=== PATIENT | female | born 1940 | race Caucasian/White ===

== ENCOUNTER → 2016-10-16 | Outpatient (CLI) | payer BC ==
[~2016-10-16] MED LIST: ASPEC81 PO; CARB200T PO; CARB200T2 PO; CHOL400C10 PO; CYAN100048 PO; EVS60 PO; LOSA50TA6 PO; ONDA4TAB46 PO; ONDA4TAB7 SL; RALO60TA30 PO; ZNT/150 PO
[2016-10-16 10:15] LABS: BASO % 0.4 %; BASO ABS # 0.02 K/uL (0-0.2); COMPLETE YES; EOS % 7.7 %; HEMATOCRIT 39.1 % (37-47); IG% 0.2 %; LYMPH % 31.4 %; MEAN CORPUSCULAR HEMOGLOBIN 31.5 pg (25-34); MEAN CORPUSCULAR HGB CONC 34.3 g/dl (32-36); MEAN PLATELET VOLUME 9.1 fL (7.4-10.4); MONO % 8.7 %; NEUT % 51.6 %; PLATELET COUNT 245 K/uL (130-400); RED BLOOD COUNT 4.25 M/uL (4.2-5.4); WHITE BLOOD COUNT 5.42 K/uL (4.8-10.8)
[2016-10-16 10:56] LABS: ALT/SGPT 23 U/L (12-78); AST/SGOT 14 U/L (15-37); BLOOD UREA NITROGEN 16 mg/dl (7-18); BUN/CREATININE RATIO 16.5 (10-20); CALCIUM 9.1 mg/dl (8.5-10.1); CARBON DIOXIDE 29 mmol/L (21-32); CHLORIDE 107 mmol/L (98-107); CREATININE 0.96 mg/dl (0.60-1.20); GLUCOSE 96 mg/dl (70-99); POTASSIUM 4.1 mmol/L (3.5-5.1); SODIUM 142 mmol/L (136-145)
== END | disposition home or self-care (01) ==
LOC: C.LAB 09:36
DX: I10 Essential (primary) hypertension (principal); M79.2 Neuralgia and neuritis, unspecified

== ENCOUNTER → 2016-11-08 | Outpatient (CLI) | payer BC ==
[~2016-11-08] MED LIST changes: +RALO60TA12 PO; -RALO60TA30 PO
[2016-11-08 18:00] LABS: FERRITIN 76.9 ng/ml (8.0-388.0); MAGNESIUM 2.2 mg/dl (1.8-2.4); THYROID STIMULATING HORMONE 1.63 uIu/ml (0.300-4.500)
== END ==
LOC: C.LAB 16:31
DX: M79.1 Myalgia (principal)

== ENCOUNTER → 2017-02-17 | Outpatient (CLI) | payer BC ==
[~2017-02-17] MED LIST changes: -RALO60TA12 PO; +RALO60TA30 PO
[2017-02-17 18:02] LABS: BASO % 0.3 %; BASO ABS # 0.02 K/uL (0-0.2); COMPLETE YES; EOS % 5.5 %; HEMATOCRIT 39.4 % (37-47); IG% 0.3 %; LYMPH ABS # 1.44 K/uL (1.2-3.4); MEAN CELL VOLUME 92.7 fL (80-100); MEAN CORPUSCULAR HEMOGLOBIN 31.3 pg (25-34); MEAN CORPUSCULAR HGB CONC 33.8 g/dl (32-36); MEAN PLATELET VOLUME 8.7 fL (7.4-10.4); NEUT % 64.9 %; PLATELET COUNT 188 K/uL (130-400); RED BLOOD COUNT 4.25 M/uL (4.2-5.4); WHITE BLOOD COUNT 7.21 K/uL (4.8-10.8)
--- NOTE | 2017-02-17 18:09 | DIAGNOSTIC IMAGING REPORT ---
CHEST 2 VIEWS ROUTINE CLINICAL HISTORY: FEVER, COUGH dyspnea COMPARISON STUDY: 03/08/2015 FINDINGS: The bones soft tissues and hemidiaphragms are normal. The cardiomediastinal silhouette is normal. The lungs are clear. The pulmonary vasculature is normal. IMPRESSION: Negative chest. Electronically signed by: Gilberto Monroe M.D. 02/17/2017 6:08 PM Dictated Date/Time: 02/17/2017 6:07 PM
== END | disposition home or self-care (01) ==
LOC: C.RAD 17:40
DX: R05 Cough (principal)

== ENCOUNTER 2017-04-09 20:01 | Emergency (ER) | payer BC ==
[~2017-04-09] VITALS: Ht 160 cm; Wt 65.8 kg
[~2017-04-09 20:01] MED LIST changes: -CARB200T PO; -CHOL400C10 PO; -CYAN100048 PO; -ONDA4TAB46 PO; -RALO60TA30 PO
[2017-04-09 20:10] VITALS: TEMP 36.7; Ht 160 cm; Wt 65.8 kg
[2017-04-09] MEDS ORDERED: LIDOCAINE/EPINEPHRINE 1% 20 ML VIAL INFIL ONE (20:45)
[2017-04-09] MEDS ORDERED: CARB200T PO (20:54)
[2017-04-09] MEDS ORDERED: ONDA4TAB46 PO (20:54)
[2017-04-09] MEDS ORDERED: CYAN100048 PO (20:54)
[2017-04-09] MEDS ORDERED: CHOL400C10 PO (20:54)
[2017-04-09] MEDS ORDERED: RALO60TA12 PO (20:54)
--- NOTE | 2017-04-09 21:09 | DIAGNOSTIC IMAGING REPORT ---
HEAD CT NONCONTRAST CT DOSE: 537.48 mGy.cm HISTORY: head injury TECHNIQUE: Multiaxial CT images of the head were performed without the use of intravenous contrast. Automated exposure control was utilized for this study. Comparison: None. Findings: Trace fluid within the left sphenoid sinus. Posterior scalp laceration. The calvarium and skull base are intact. The ventricles and sulci are within normal limits. There is no mass, hematoma, midline shift, or acute infarct. Impression: No acute intracranial abnormality. Posterior scalp laceration. Electronically signed by: Saul Chery M.D. 04/09/2017 9:07 PM Dictated Date/Time: 04/09/2017 9:01 PM
--- NOTE | 2017-04-09 21:48 | EMERGENCY ROOM VISIT NOTE ---
History First contact with patient: 20:18 Chief Complaint: HEAD INJURY (MINOR) Stated Complaint: CUT ON HEAD/INJURY History of Present Illness The patient is a 76 year old female who presents to the Emergency Room with complaints of a head injury which occurred just prior to arrival. The patient states that she was ice skating with a moravian group and fell on the ice, striking the back of her head on the ice. There was no loss of consciousness. The patient reports a mild headache which she rates a 5/10. She denies any nausea/vomiting, dizziness, confusion, blurred vision or slurred speech. The patient does not take blood thinners. She reports she did sustain a laceration to the back of the head. Her tetanus shot is up-to-date. Review of Systems A complete 10 point review of systems was reviewed with the patient with pertinent positives and negatives as per history of present illness. All else were negative. Past Medical/Surgical History Medical Problems: (1) Bronchitis (2) HTN (hypertension) (3) Pneumonia Surgical Problems: (1) H/O hernia repair (2) H/O: hysterectomy Family History Diabetes mellitus Heart disease Hypertension Social History Smoking Status: Never Smoker Alcohol Use: none Marital Status: Housing Status: lives with significant other Occupation Status: retired Current/Historical Medications Scheduled Carbamazepine (Epitol), 100 MG PO HS Carbamazepine (Tegretol), 200 MG PO QAM Cholecalciferol (Vitamin D 400), 400 UNITS PO DAILY Cyanocobalamin (Vitamin B-12), 1,000 MCG PO DAILY Losartan Potassium (Cozaar), 50 MG PO DAILY Raloxifene Hcl (Evista), 60 MG PO WK Ranitidine Hcl (Zantac), 300 MG PO HS Scheduled PRN Ondansetron Hcl (Zofran), 4 MG PO Q6H PRN for Nausea Allergies Coded Allergies: Amoxicillin (Verified Allergy, Unknown, unknown, 03/08/15) Codeine (Verified Adverse Reaction, Intermediate, DIZZINESS AND FAINTING, 03/08/15) Physical Exam Vital Signs Date Time Temp Pulse Resp B/P (MAP) Pulse Ox O2 Delivery O2 Flow Rate FiO2 04/09/17 22:12 100 20 190/107 97 04/09/17 20:10 36.7 107 16 186/95 97 Room Air Physical Exam VITALS: Vitals are noted on the nurse's note and reviewed by myself. Vital signs stable. GENERAL: This is a 76-year-old female, in no acute distress, nondiaphoretic, well-developed well-nourished. SKIN: There is a 6 cm laceration to the posterior aspect of the scalp with no active bleeding. EARS: External auditory canals clear, tympanic membranes pearly carrasco without erythema or effusion bilaterally. No hemotympanum. EYES: Pupils equal round and reactive to light and accommodation. Conjunctivae without injection, sclerae without icterus. Extraocular movements intact. MOUTH: No loose or chipped teeth. NECK: Cervical spine is nontender. HEART: Regular rate and rhythm without murmurs gallops or rubs. LUNGS: Clear to auscultation bilaterally without wheezes, rales or rhonchi. NEURO: Patient was alert and oriented to person place and time. No focal neurological deficits. Medical Decision & Procedures ER Provider Diagnostic Interpretation: HEAD CT NONCONTRAST Findings: Trace fluid within the left sphenoid sinus. Posterior scalp laceration. The calvarium and skull base are intact. The ventricles and sulci are within normal limits. There is no mass, hematoma, midline shift, or acute infarct. Impression: No acute intracranial abnormality. Posterior scalp laceration. Procedure Verbal consent was obtained to perform the procedure. Using sterile technique the wound was cleaned with Betadine. The area was sterilely draped. 6 ml of 1 % buffered lidocaine with epinephrine was used to anesthetize the patient's scalp. Once the patient was numb, the wound was copiously irrigated under pressure with sterile saline. The wound was explored and there were no deep structures present. The laceration was repaired using 11 park with the wound edges being well approximated. The patient tolerated the procedure well. The bleeding stopped. The area was cleaned with sterile saline. Medical Decision Differential diagnosis includes skull fracture, intracranial bleed, concussion, among others. The patient is a 76-year-old female who presents today for evaluation of a head injury. The patient underwent CT of the head, which was read by radiology with no acute findings. Scalp laceration repair was performed as noted in the procedure section. Conservative measures and wound care instructions were discussed with the patient. She verbalized her understanding and was discharged home in good condition. The patient was independently evaluated by Dr. Turner, ED attending physician, who agreed with my assessment and treatment plan. Medication reconciliation: I attest that I have personally reviewed the patient 's current medication list. Blood pressure screening: Patient was found to have an elevated blood pressure and was referred to their primary care provider for recheck and further treatment. Patient does note a history of hypertension and states that she typically takes losartan at bedtime and did not take that yet. Impression Primary Impression: Closed head injury Additional Impression: Scalp laceration Departure Information Dispostion Home / Self-Care Condition GOOD Referrals Omari Islas Jr,D.O. (PCP) Patient Instructions My [facility] Additional Instructions You have received 11 park on your scalp. These park are NOT dissolvable and WILL need to be removed by a health care provider in 10 days. You can return to the Emergency Department or contact your Primary Care Provider to have these park removed. Proper wound care is essential for adequate wound healing and infection prevention. You can shower and clean the wound with soap and water. Do scour over the wound, pat dry with a towel. Do not submerse the wound until the park have been removed. You can use an antibiotic ointment with a dressing over the wound for the next 3-4 days. After this time you may leave the wound dry and open to the air. If crust develops over the wound you can use a Q-tip to apply a 1:1 peroxide:water solution to clean the wound. Look for signs of infection of the wound including: increased pain, swelling, foul discharge, streaking, or increased temperature. If any of these are noticed you should return to the Emergency Department for further assessment and treatment. As with any laceration you may have received nerve damage to the surrounding tissues. This damage may or may not be permanent. For pain control, you can use the following acuc-rfr-[id number] medicines (if >12 yo): - Regular strength (325mg/tab) Tylenol (acetaminophen) 2 tabs every 4-6 hours as needed. Do not exceed 12 tablets in a 24 hour period. Avoid taking more than 4 grams (4000 mg) of Tylenol per day. This includes any other sources of acetaminophen you may take on a regular basis. - Regular strength (200 mg/tab) Advil (ibuprofen) 1-2 tabs every 4-6 hours as needed. Do not exceed a dose of 3200 mg per day. Return to the emergency department if your symptoms worsen despite treatment course outlined above. Problem Qualifiers Primary Impression: Closed head injury Encounter type: initial encounter Qualified Codes: S09.90XA - Unspecified injury of head, initial encounter Additional Impression: Scalp laceration Encounter type: initial encounter Qualified Codes: S01.01XA - Laceration without foreign body of scalp, initial encounter
--- NOTE | 2017-04-09 21:57 | EMERGENCY ROOM VISIT NOTE ---
ED Visit Note First contact with patient: 20:18 The patient was seen and examined with Jacinda Chance PA-C. I agree with the history, physical and findings. Please see the note for disposition and details.
[2017-04-09 22:12] VITALS: BP 190/107; PULSE 100; O2SAT 97
== END 2017-04-09 22:13 | disposition home or self-care (01) ==
LOC: C.EDB 20:03 → C.EDD 22:13
DX: S01.01XA Laceration without foreign body of scalp, initial encounter (principal); S09.90XA Unspecified injury of head, initial encounter; W01.0XXA Fall on same level from slipping, tripping and stumbling without subsequent striking against object, initial encounter; Y93.21 Activity, ice skating; I10 Essential (primary) hypertension; Z86.19 Personal history of other infectious and parasitic diseases; Z90.710 Acquired absence of both cervix and uterus; Z98.890 Other specified postprocedural states; Z79.899 Other long term (current) drug therapy; Z88.1 Allergy status to other antibiotic agents; Z88.5 Allergy status to narcotic agent; Z83.3 Family history of diabetes mellitus; Z82.49 Family history of ischemic heart disease and other diseases of the circulatory system

== ENCOUNTER → 2017-05-26 | Outpatient (CLI) | payer BC ==
[~2017-05-26] MED LIST changes: -ASPEC81 PO; +CARB200T PO; +CHOL400C10 PO; +CYAN100048 PO; -EVS60 PO; +ONDA4TAB46 PO; -ONDA4TAB7 SL; +RALO60TA12 PO
[2017-05-26 12:38] LABS: BASO % 0.5 %; BASO ABS # 0.03 K/uL (0-0.2); COMPLETE YES; EOS % 3.5 %; HEMATOCRIT 42.8 % (37-47); IG% 0.2 %; LYMPH % 31.1 %; LYMPH ABS # 1.94 K/uL (1.2-3.4); MEAN CELL VOLUME 92.6 fL (80-100); MEAN CORPUSCULAR HEMOGLOBIN 29.9 pg (25-34); MEAN CORPUSCULAR HGB CONC 32.2 g/dl (32-36); MEAN PLATELET VOLUME 9.4 fL (7.4-10.4); MONO % 7.9 %; NEUT % 56.8 %; PLATELET COUNT 242 K/uL (130-400); RED BLOOD COUNT 4.62 M/uL (4.2-5.4); WHITE BLOOD COUNT 6.23 K/uL (4.8-10.8)
[2017-05-26 13:02] LABS: BLOOD UREA NITROGEN 13 mg/dl (7-18); BUN/CREATININE RATIO 16.6 (10-20); CARBON DIOXIDE 28 mmol/L (21-32); CHLORIDE 108 mmol/L (98-107); CREATININE 0.81 mg/dl (0.60-1.20); GLUCOSE 87 mg/dl (70-99); POTASSIUM 4.1 mmol/L (3.5-5.1); SODIUM 141 mmol/L (136-145)
[2017-05-26 13:09] LABS: CHOLESTEROL 253 mg/dl (0-200); CHOLESTEROL/HDL RATIO 2.5; FERRITIN 91.8 ng/ml (8.0-388.0); HDL CHOLESTEROL 102 mg/dl; LDL CHOLESTEROL CALCULATED 127 mg/dl; TRIGLYCERIDES 119 mg/dl (0-150); VERY LOW DENSITY LIPOPROT CALC 24 mg/dl
== END | disposition home or self-care (01) ==
LOC: C.LAB 10:17
DX: G47.00 Insomnia, unspecified (principal); E55.9 Vitamin D deficiency, unspecified; E78.5 Hyperlipidemia, unspecified; E61.1 Iron deficiency

== ENCOUNTER → 2017-09-17 | Outpatient (CLI) | payer BC ==
[~2017-09-17] MED LIST changes: -RALO60TA12 PO; +RALO60TA30 PO
--- NOTE | 2017-09-18 07:53 | MAMMOGRAPHY REPORT ---
BILATERAL DIGITAL SCREENING MAMMOGRAM TOMOSYNTHESIS WITH CAD: 09/17/2017 CLINICAL HISTORY: Routine screening. Patient has no complaints. TECHNIQUE: Breast tomosynthesis in addition to standard 2D mammography was performed. Current study was also evaluated with a Computer Aided Detection (CAD) system. COMPARISON: Comparison is made to exams dated: 07/30/2016 mammogram, 07/27/2015 mammogram, 04/25/2014 mammogram, 04/22/2013 mammogram, 03/17/2012 mammogram, and 03/12/2011 mammogram - [facility]. BREAST COMPOSITION: There are scattered areas of fibroglandular density in both breasts. FINDINGS: There is a 7 mm focal asymmetry in the upper outer middle one third of the right breast, f or which additional spot compression tomosynthesis views and possible ultrasound are recommended. There are scattered benign round microcalcifications in both breasts. No other suspicious mass, archi tectural distortion or cluster of microcalcifications is seen. IMPRESSION: ACR BI-RADS CATEGORY 0: INCOMPLETE EVALUATION: NEED ADDITIONAL IMAGING EVALUATION The 7 mm focal asymmetry in the right upper outer breast needs additional evaluation. The patient will be called to schedule an appointment. Approximately 10% of breast cancers are not detected with mammography. A negative mammographic report should not delay biopsy if a clinically suggestive mass is present. Gogo Erickson M.D. ay/:09/17/2017 16:28:17 Parking Lot Attendant: Bettina SANCHEZ)([employer]), [facility] letter sent: Addl Imaging 0 BI-RADS Code: ACR BI-RADS Category 0: Incomplete Evaluation: Need Additional Imaging Evaluation
== END | disposition home or self-care (01) ==
LOC: C.MAMM 14:40
PROVIDERS: ATTEND Obstetrics & Gynecology
DX: Z12.31 Encounter for screening mammogram for malignant neoplasm of breast (principal)

== ENCOUNTER → 2017-09-29 | Outpatient (CLI) | payer BC ==
--- NOTE | 2017-09-29 15:09 | MAMMOGRAPHY REPORT ---
UNILATERAL RIGHT DIGITAL DIAGNOSTIC MAMMOGRAM TOMOSYNTHESIS AND TARGETED RIGHT ULTRASOUND: 09/29/2017 CLINICAL HISTORY: 76-year-old woman called back from screening mammography for a 7 mm focal asymmetry in the upper outer middle one third of the right breast. TECHNIQUE: Spot compression 2-D and tomosynthesis CC and MLO views of the right breast were obtained. COMPARISON: Comparison is made to exams dated: 09/17/2017 mammogram, 07/30/2016 mammogram, 07/27/2015 mammogram, 04/25/2014 mammogram, 04/22/2013 mammogram, and 03/12/2011 mammogram - [facility]. BREAST COMPOSITION: There are scattered areas of fibroglandular density in the right breast. FINDINGS: There is partial effacement of the focal asymmetry in the upper outer middle one third of the right breast on the additional supplemental spot compression tomosynthesis views. Possible persi stent 4 mm partially circumscribed mass is seen in the superior middle one third of the right breast on the spot compression MLO view (tomosynthesis slice 15/61) another circumscribed and lobulated low- density mass is seen in the upper outer posterior right breast measuring 7 x 5 x 5 mm which has been stable on all available prior mammograms, most likely representing an intramammary lymph node. No fo nelly area of architectural distortion or suspicious calcifications are seen. Targeted ultrasound was performed throughout the upper outer quadrant of the right breast. In the 9: 00 axis, 4 cm from the nipple, there is an oval hypoechoic partially circumscribed possibly microlobu lated mass measuring 3.8 x 2.8 x 3.7 mm. Although this could represent a complicated cyst, a solid m ass cannot be excluded and definitive characterization with ultrasound guided cyst aspiration versus core biopsy is recommended. This may correspond to the initial focal mammographic asymmetry. In the 9:30 right breast, 7 cm from the nipple, a morphologically normal intramammary lymph node is seen me asuring 7 mm, corresponding to the second mammographic mass in the upper outer posterior breast which has been stable on numerous prior mammograms. IMPRESSION: ACR BI-RADS CATEGORY 4: SUSPICIOUS, TARGETED ULTRASOUND ACR BI-RADS CATEGORY 4: SUSPICIO US 1. There is an indeterminate 3.8 mm hypoechoic cystic versus solid mass in the 9:00 right breast on ultrasound, which may correlate with the mammographic focal asymmetry seen on recent screening mammog piedad in the right upper outer quadrant. Definitive characterization with ultrasound guided cyst asp iration versus core needle biopsy is recommended. These results and recommendations were discussed with the patient at the time of the exam. Approximately 10% of breast cancers are not detected with mammography. A negative mammographic report should not delay biopsy if a clinically suggestive mass is present. Gogo Erickson M.D. ay/:09/29/2017 12:26:13 Freight Car Loader: Kianna San, [facility] letter sent: Abnormal 4/5 BI-RADS Code: ACR BI-RADS Category 4: Suspicious Ultrasound BI-RADS: ACR BI-RADS Category 4: Suspici ous
== END | disposition home or self-care (01) ==
LOC: C.MAMM 09:59
PROVIDERS: ATTEND Obstetrics & Gynecology
DX: N64.89 Other specified disorders of breast (principal); N63.10 Unspecified lump in the right breast, unspecified quadrant

== ENCOUNTER → 2017-10-01 | Outpatient (CLI) | payer BC ==
--- NOTE | 2017-10-01 14:13 | MAMMOGRAPHY REPORT ---
UNILATERAL RIGHT DIGITAL DIAGNOSTIC MAMMOGRAM TOMOSYNTHESIS: 10/01/2017 CLINICAL HISTORY: Status post ultrasound guided cyst aspiration of an oval hypoechoic to anechoic sub -centimeter mass in the 9:00 right breast. Please refer to the report from right breast ultrasound guided cyst aspiration performed at the same time for full detail. IMPRESSION: Please refer to the report from right breast ultrasound guided cyst aspiration performed at the same time for full detail. Approximately 10% of breast cancers are not detected with mammography. A negative mammographic report should not delay biopsy if a clinically suggestive mass is present. Gogo Erickson M.D. ay/:10/01/2017 13:09:33 Architectural Model Maker: Kianna San, [facility] BI-RADS Code: n/a
--- NOTE | 2017-10-02 14:35 | MAMMOGRAPHY REPORT ---
ASPIRATION RIGHT BREAST: 10/01/2017 CLINICAL HISTORY: 76-year-old woman called back from recent screening mammogram for a 7 mm focal asym metry in the upper outer middle one third of the right breast. Additional diagnostic tomosynthesis v iews and ultrasound demonstrated an oval mass, which was hypoechoic to anechoic on ultrasound, possib ly representing a cyst. Patient presents for ultrasound guided cyst aspiration versus core needle bi opsy. COMPARISON: Comparison is made to exams dated: 09/29/2017 ultrasound, 09/29/2017 mammogram, 7 mammogram, 07/30/2016 mammogram, 07/27/2015 mammogram, and 04/25/2014 mammogram - [facility]. PATIENT CONSENT: After explaining the risks, benefits and alternatives of the procedure to the patien t, informed consent was obtained verbally and in writing. Specific risks include: bleeding, infection and puncture of adjacent structure. A time out was preformed and the right breast was agreed as the site for cyst aspiration. PROCEDURE DESCRIPTION: The hypoechoic cystic appearing mass in the 9:00 right breast was identified. 1% buffered lidocaine was administered subcutaneously and intraparenchymally as local anesthesia. A 2 2 gauge needle was advanced to the site of the mass. Aspiration was preformed and the cyst nearly com pletely resolved. The fluid was reddish and clear, therefore rinsed in CytoLyt and sent to the pathol ogy department for cytologic analysis. Post aspiration right CC and ML 2-D and tomosynthesis images were obtained. The 7 mm ovoid asymmetry is less conspicuous on the right CC 2-D and tomosynthesis postprocedure mammogram, confirming mammog raphicsonographic correlation and resolution of the aspirated cyst. IMPRESSION: ASPIRATION Status post aspiration in to near complete resolution of a probable benign cyst in the 9:00 right sanaz ast, which correlated with the 7 mm mammographic asymmetry in the right upper outer quadrant. The patient will receive notification of the cytology results from her referring physician. Gogo Erickson M.D. ay/:10/01/2017 14:02:24 Electrocardiographic Technician: Kianna San, [facility]
== END | disposition home or self-care (01) ==
LOC: C.MAMM 12:31
PROVIDERS: ATTEND Obstetrics & Gynecology
DX: R92.8 Other abnormal and inconclusive findings on diagnostic imaging of breast (principal); N63.10 Unspecified lump in the right breast, unspecified quadrant

== ENCOUNTER → 2017-11-03 | Outpatient (CLI) | payer BC | END | disposition home or self-care (01) | LOC: C.MAMM 13:39 | DX: M85.88 Other specified disorders of bone density and structure, other site (principal); M85.851 Other specified disorders of bone density and structure, right thigh; M85.852 Other specified disorders of bone density and structure, left thigh ==

== ENCOUNTER → 2017-12-04 | Outpatient (CLI) | payer BC ==
[2017-12-04 12:33] LABS: BLOOD UREA NITROGEN 19 mg/dl (7-18); CALCIUM 9.3 mg/dl (8.5-10.1); CARBON DIOXIDE 28 mmol/L (21-32); CREATININE 0.91 mg/dl (0.60-1.20); GLUCOSE 89 mg/dl (70-99); POTASSIUM 4.2 mmol/L (3.5-5.1); SODIUM 139 mmol/L (136-145)
== END | disposition home or self-care (01) ==
LOC: C.LAB 11:30
PROVIDERS: ATTEND Internal Medicine
DX: M81.0 Age-related osteoporosis without current pathological fracture (principal)

== ENCOUNTER → 2018-01-22 | Outpatient (CLI) | payer BC ==
[2018-01-22 12:28] LABS: BASO % 0.4 %; BASO ABS # 0.02 K/uL (0-0.2); EOS % 2.4 %; EOS ABS # 0.13 K/uL (0-0.5); HEMATOCRIT 39.9 % (37-47); HEMOGLOBIN 13.8 g/dL (12.0-16.0); LYMPH % 35.5 %; LYMPH ABS # 1.93 K/uL (1.2-3.4); MEAN CELL VOLUME 91.5 fL (80-100); MEAN CORPUSCULAR HEMOGLOBIN 31.7 pg (25-34); MEAN CORPUSCULAR HGB CONC 34.6 g/dl (32-36); MONO % 7.6 %; MONO ABS # 0.41 K/uL (0.11-0.59); NEUT % 54.1 %; NEUT ABS # 2.94 K/uL (1.4-6.5); PLATELET COUNT 236 K/uL (130-400); RED CELL DISTRIBUTION WIDTH SD 47.3 fL (36.4-46.3); WHITE BLOOD COUNT 5.43 K/uL (4.8-10.8)
== END | disposition home or self-care (01) ==
LOC: C.LAB 10:27
DX: M79.2 Neuralgia and neuritis, unspecified (principal); E61.1 Iron deficiency; I10 Essential (primary) hypertension

== ENCOUNTER → 2018-05-19 | Outpatient (CLI) | payer BC ==
[2018-05-19 11:45] LABS: BASO % 0.4 %; BASO ABS # 0.02 K/uL (0-0.2); EOS ABS # 0.16 K/uL (0-0.5); HEMATOCRIT 39.6 % (37-47); HEMOGLOBIN 13.4 g/dL (12.0-16.0); IG# 0.01 K/uL (0.00-0.02); LYMPH % 34.4 %; LYMPH ABS # 1.86 K/uL (1.2-3.4); MEAN CELL VOLUME 92.1 fL (80-100); MEAN CORPUSCULAR HEMOGLOBIN 31.2 pg (25-34); MEAN CORPUSCULAR HGB CONC 33.8 g/dl (32-36); MEAN PLATELET VOLUME 9.3 fL (7.4-10.4); MONO % 7.9 %; MONO ABS # 0.43 K/uL (0.11-0.59); NEUT % 54.1 %; NEUT ABS # 2.93 K/uL (1.4-6.5); PLATELET COUNT 225 K/uL (130-400); RED CELL DISTRIBUTION WIDTH CV 14.1 % (11.5-14.5); RED CELL DISTRIBUTION WIDTH SD 47.5 fL (36.4-46.3); WHITE BLOOD COUNT 5.41 K/uL (4.8-10.8)
[2018-05-19 11:59] LABS: ALT/SGPT 19 U/L (12-78); AST/SGOT 13 U/L (15-37); BLOOD UREA NITROGEN 13 mg/dl (7-18); CALCIUM 8.3 mg/dl (8.5-10.1); CARBON DIOXIDE 27 mmol/L (21-32); CHOLESTEROL 214 mg/dl (0-200); CREATININE 0.95 mg/dl (0.60-1.20); GLUCOSE 90 mg/dl (70-99); LDL CHOLESTEROL CALCULATED 108 mg/dl; POTASSIUM 4.3 mmol/L (3.5-5.1); SODIUM 138 mmol/L (136-145)
== END | disposition home or self-care (01) ==
LOC: C.LAB 09:43
DX: I10 Essential (primary) hypertension (principal); E55.9 Vitamin D deficiency, unspecified; M79.2 Neuralgia and neuritis, unspecified